=== PATIENT | female | born 1955 | race Native Hawaiian/Other Pacific Islander ===

== ENCOUNTER → 2017-04-07 | Outpatient (CLI) | payer MEDICAID ==
--- NOTE | 2017-05-16 08:38 | CDE ---
ADMIT: 04/07/2017 RM/LOC: [facility] MR#: [id number] [facility] [address] [place], [place] [address] MALCOM CARRASCO [address] [place] [address] Chemical Dependency Evaluation SEX: F AGE: 61 : 1955 A. DEMOGRAPHICS: NAME: Malcom Carrasco DATE OF : 1955 EVALUATING COUNSELOR: WILLIAM Truong LADC DATE OF EVALUATION: 04/07/2017 B. PRESENTING PROBLEM/CHIEF COMPLAINT: Client reported she was charged with a DUI and is on probation and had to have this evaluation completed for the court. Her ground defence officer is Donald, however, she is also working with Johanna Reyes. C. MEDICAL HISTORY: Client reported she has had ankle surgery and a heart pacemaker put in. She is currently on several medications including lisinopril, Plavix, aspirin, metoprolol, Lexapro, and pravastatin. She is under doctor's care with Josiane in [place] and Dr. Mann Gentile at the [facility]. D. WORK/SCHOOL/ HISTORY: Client reported she did get her GED. She is currently unemployed and has been since 2009. She stated she is on disability. She denies being in the . E. ALCOHOL/DRUG ASSESSMENT SUMMARY: ALCOHOL: Age of first use was age 19. She stated in her 20s, she drank rather heavily. In her 30s is when she drank her heaviest. She would drink 6-12 beers and it continued into her 40s. She stated in her 50s, after receiving her heart pacemaker put in, she had not drank as much. However, she did get a DUI in September and her last date of use was March 22 of four cans of beer. MARIJUANA: No use reported. COCAINE: No use reported. METHAMPHETAMINES: No use reported. HALLUCINOGENS: No use reported.. HEROIN: No use reported. PRESCRIPTION DRUGS: No use reported. OTHER DRUGS (INHALANTS, OVER THE COUNTER, ETC): No use reported. NICOTINE: Age of first use was 17. She currently smokes still. Negative consequences: She denies any; however, she did get a DUI. F. 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 She does have an interlock in her car. ADMIT: 04/07/2017 RM/LOC: [facility] MR#: [id number] [address] DANILOMALCOM KASPER [address] [place] [address] Chemical Dependency Evaluation SEX: F AGE: 61 : 1955 G. FAMILY/SOCIAL/PEER HISTORY: Client reported she had a loving and caring upbringing. She stated her relationship with her mother was open and they could talk about everything. She stated her relationship with her dad was good as well. She is currently not , but had been for 10 years. She stated she is not in a relationship at this time. She has three sons and a daughter, and the majority of her friends are nondrinkers or nonusers. H. PSYCHIATRIC/BEHAVIORAL HISTORY: Client reported she has never been suicidal and has never been under any inpatient or outpatient treatment for mental health or behavioral problems. I. COLLATERAL INFORMATION: I did try to contact her ground defence officer to see if she had any collateral information. At the time of this evaluation, she had not met with him. THE DRINKER TYPE RATING: Is a measure of how the client perceives their own drinking and/or using. This rating is indicative of how resistant or accepting the person is to the drinking problem. The client chose their rating from the following classifications: ALCOHOL Total Abstainer Light Social (non-problem) Drinker Moderate Social (non-problem) Drinker User Heavy Social (non-problem)Drinker Problem Drinker Alcoholic OTHER DRUG Nonuser Light Social (non-problem) User Moderate Social (non-problem) User Heavy Social (non-problem) User Problem User Addicted/Dependent She circled a light social nonproblem drinker and a nonuser of other drugs. ADMIT: 04/07/2017 RM/LOC: [facility] MR#: [id number] [id number] [address] DANILOMALCOM KASPER [address] [place] [address] Chemical Dependency Evaluation SEX: F AGE: 61 : 1955 SUBSTANCE ABUSE SUBTLE SCREENING INVENTORY (SASSI): The SASSI is an assessment tool specifically designed to provide a clearer picture of what lies beneath the facade presented by most patients or clients. Scores on this assessment aid in distinguishing nonabusers from abusers, alcoholics from drug abusers and nondefensive clients from defensive ones. The incorporation of a "denial scale" further enhances the ability to make an accurate recommendation. Client scores are: Face Valid Alcohol (FVA): 3. Face Valid Other Drugs (FVOD): 1. Symptoms (SYM): 2. Obvious Attributes (OAT): 4. Subtle Attributes (SAT): 3. Defensiveness (DEF): 6. Supplemental Addiction Measure (LORRIE): 7. Family versus Controls (FAM): 8. Correctional (COR): 3. Random Answering Pattern (RAP):0. These scores would indicate that she has a low probability of having a substance dependence disorder. However, according to client, she had never tried any drugs, including marijuana, but when she answered the questions on the SASSI, the question asked if you have gotten into trouble with the law because of drugs and she circled once or twice. So, it is believed that she was not honest on this testing. We administered the ASI. Please see attached summary sheet. K. CLINICAL IMPRESSION: Client appeared to be minimizing her alcohol use. 1. She does meet criteria for F10.20, Alcohol Use Disorder, Moderate. Criteria to meet that diagnosis is: There is a persistent desire and successful efforts to cut down or control her alcohol use; craving or strong desire to drink; recurring alcohol use in situations which is physically hazardous, due to her having a pacemaker; and tolerance. She also is diagnosed with: 2. Z63.72, alcoholism or drug addiction in the family. 3. V65.3, problems related to legal circumstances. 4. V71.42, counseling for family member of alcoholic. 5. V72.0, tobacco use. L. RECOMMENDATIONS PRESENTED TO CLIENT: It is recommended that she participate in an outpatient treatment program and that she abstain from all alcohol and begin attending AA meetings. ADMIT: 04/07/2017 RM/LOC: [facility] MR#: [id number] [id number] [address] MALCOM CARRASCO [address] [place] [address] Chemical Dependency Evaluation SEX: F AGE: 61 : 1955 M. CLIENT/FAMILY RESPONSE: I did call her and talk to her about this and she stated she is almost off probation and does not think she needs to do any treatment. However, when I spoke to her ground defence officer, he informed me her probation has been extended. 05/14/17 ADDENDUM: On 05/12, I received a call from Malcom, and she asked that I return her call. When an attempt was made, she did not answer. On 05/14, I spoke with Johanna Reyes from the probation office, who reported Malcom had a positive alcohol test, and testing at 0.072, it is now recommended that Malcom participate in residential treatment program and follow any and all aftercare recommendations set forth by her counselor. Both the probation office and treatment staff believe she has been minimizing and has been drinking much more than she led on, due to testing, her dishonesty, and this positive test. Another factor is that she has never had treatment, and has had several years of drinking, that we were planning to touch on in outpatient treatment, when we believed she had stopped drinking and was ready to deal with it. At this time, we believe we will not touch her minimizing and denial in any other type of setting than residential. She was not willing to come to outpatient, so the chance that she will participate in IOP is doubtful. Her progress is poor at this time, and we, as a professional staff, make this recommendation. ADMIT: 04/07/2017 RM/LOC: [facility] MR#: [id number] [address] [place] [id number] MALCOM CARRASCO [address] [place] [address] Chemical Dependency Evaluation SEX: F AGE: 61 : 1955 ASAM CLINICAL ASSESSMENT CRITERIA: Low/Medium/High Dimension 1 = Intoxication and Withdrawal (i.e. history of withdrawal, level of current use): Low. Dimension 2 = Medical (i.e. , diabetes, medications, chronic conditions): High. Dimension 3 = Emotional/Behavior Conditions (i.e. psych history, impulsivity, depression, anxiety, trauma history): Medium. Dimension 4 = Treatment Acceptance/Resistance (i.e. past history, minimization/blame, acknowledgement of problem, pressure to seek treatment, does not feel they have a problem): High. Dimension 5 = Relapse Potential (i.e. inability to abstain, use despite consequences, significant preoccupation, relapse despite outpatient treatment attempts): Medium. Dimension 6 = Recovery/Living Environment (i.e. current users reside in environment, family attitude, lack of consistent adult support in living environment, high exposure to using in social/work environment): Medium. CRIMINOGENIC RISK FACTORS: Low/Moderate/High Antisocial Attitudes: Medium. Antisocial Peers: Low. Self Control Skills: Medium. Family Dysfunction: Medium. Past Criminality: Low. WILLIAM Truong LADC/ anthony JOB #: [id number] CC: CORRECTED: 05/14/2017 [address]
== END | disposition home or self-care (01) ==
LOC: ADTC.GI 13:15
DX: F10.20 Alcohol dependence, uncomplicated (principal); Z72.0 Tobacco use; Z63.72 Alcoholism and drug addiction in family; Z71.89 Other specified counseling; Z65.3 Problems related to other legal circumstances